=== PATIENT | male | born 1995 | race Caucasian/White ===

== ENCOUNTER 2018-01-11 13:47 | Emergency (ER) | payer BC ==
[~2018-01-11] VITALS: Ht 180.3 cm; Wt 87.5 kg
--- NOTE | 2018-01-11 13:56 | PD ---
HPI Chief Complaint: dizziness, palpitations Time Seen by Provider: 13:52 Travel History International Travel<30 days: No Contact w/Intl Traveler<30days: No History of Present Illness HPI 22-year-old male complains of lightheadedness and dizziness. He also complains of palpitations and heart racing sensation. He reports near syncope/loss of consciousness. He states, "I was Cipro nervous.". Onset occurred while the patient was sitting in class. Evidently he attempted to crack his neck when the dizziness started. He denies tobacco. No drug abuse. No excessive energy drinks or use of stimulants. Patient reports drinking alcohol on occasion none recently. No similar prior events have occurred. [facility] Social History Tobacco Use: No Allergies-Medications (Allergen,Severity, Reaction): Coded Allergies: No Known Allergies (Unverified , 01/11/18) Reported Meds & Prescriptions Reported Meds & Active Scripts Active No Active Prescriptions or Reported Medications Review of Systems Except as stated in HPI: all other systems reviewed are Neg General / Constitutional: No: Fever Physical Exam Narrative GENERAL: 22-year-old male pleasant well-nourished well-developed no acute distress SKIN: Warm and dry. HEAD: Atraumatic. Normocephalic. EYES: Pupils equal and round. No scleral icterus. No injection or drainage. ENT: No nasal bleeding or discharge. Mucous membranes pink and moist. NECK: Trachea midline. No JVD. CARDIOVASCULAR: Regular rate and rhythm. RESPIRATORY: No accessory muscle use. Clear to auscultation. Breath sounds equal bilaterally. GASTROINTESTINAL: Abdomen soft, non-tender, nondistended. Hepatic and splenic margins not palpable. MUSCULOSKELETAL: Extremities without clubbing, cyanosis, or edema. No obvious deformities. NEUROLOGICAL: Awake and alert. No obvious cranial nerve deficits. Motor grossly within normal limits. Five out of 5 muscle strength in the arms and legs. Normal speech. PSYCHIATRIC: Appropriate mood and affect; insight and judgment normal. Data Data Last Documented VS Vital Signs Date Time Temp Pulse Resp B/P (MAP) Pulse Ox O2 Delivery O2 Flow Rate FiO2 01/11/18 14:10 16 98 Room Air 01/11/18 14:01 98.7 53 125/55 (78) Orders Orders Electrocardiogram (01/11/18 13:52) Basic Metabolic Panel (Bmp) (01/11/18 13:52) Complete Blood Count With Diff (01/11/18 13:52) Magnesium (Mg) (01/11/18 13:52) Chest, Single Ap (01/11/18 13:52) Ecg Monitoring (01/11/18 13:52) Iv Access Insert/Monitor (01/11/18 13:52) Oximetry (01/11/18 13:52) Oxygen Administration (01/11/18 13:52) Sodium Chloride 0.9% Flush (Ns Flush) (01/11/18 14:00) Sodium Chlor 0.9% 1000 Ml Inj (Ns 1000 M (01/11/18 14:00) Ed Discharge Order (01/11/18 15:05) Labs Laboratory Tests Test 01/11/18 14:20 White Blood Count 6.9 TH/MM3 Red Blood Count 5.32 MIL/MM3 Hemoglobin 15.3 GM/DL Hematocrit 44.8 % Mean Corpuscular Volume 84.3 FL Mean Corpuscular Hemoglobin 28.8 PG Mean Corpuscular Hemoglobin Concent 34.1 % Red Cell Distribution Width 12.8 % Platelet Count 246 TH/MM3 Mean Platelet Volume 8.1 FL Neutrophils (%) (Auto) 75.4 % Lymphocytes (%) (Auto) 15.3 % Monocytes (%) (Auto) 7.0 % Eosinophils (%) (Auto) 1.3 % Basophils (%) (Auto) 1.0 % Neutrophils # (Auto) 5.1 TH/MM3 Lymphocytes # (Auto) 1.1 TH/MM3 Monocytes # (Auto) 0.5 TH/MM3 Eosinophils # (Auto) 0.1 TH/MM3 Basophils # (Auto) 0.1 TH/MM3 CBC Comment DIFF FINAL Differential Comment Blood Urea Nitrogen 23 MG/DL Creatinine 0.84 MG/DL Random Glucose 89 MG/DL Calcium Level 9.5 MG/DL Magnesium Level 2.0 MG/DL Sodium Level 142 MEQ/L Potassium Level 3.3 MEQ/L Chloride Level 108 MEQ/L Carbon Dioxide Level 26.0 MEQ/L Anion Gap 8 MEQ/L Estimat Glomerular Filtration Rate 112 ML/MIN MDM Medical Decision Making Medical Screen Exam Complete: Yes Emergency Medical Condition: Yes Medical Record Reviewed: Yes Differential Diagnosis SVT, anxiety, metabolic disorder, arrhythmia, anxiety, anemia Narrative Course CBC & BMP Diagram 01/11/18 14:20 Calcium Level 9.5, Magnesium Level 2.0 KG shows no preexcitation or ischemic injury pattern Patient reports feeling much better. Again the neurologic exam is normal and arterial dissection is considered unlikely. Diagnosis Primary Impression: Syncope, near Additional Impression: Palpitations Referrals: Primary Care Physician call for appointment Med/Other Pt SpecificInfo: No Change to Meds Scripts No Active Prescriptions or Reported Meds Disposition: 01 DISCHARGE HOME Condition: Stable Cam Corrales MD January 11, 2018 13:56
[2018-01-11] MEDS ORDERED: SODIUM CHLOR 0.9% 1000 ML INJ 1,000 ML IV ONE (14:00)
[2018-01-11] MEDS ORDERED: SODIUM CHLORIDE 0.9% FLUSH 10 ML FLUSH IVF PRN (14:00)
[2018-01-11 14:01] VITALS: BP 125/55; PULSE 53; RESP 16; TEMP 98.7; O2SAT 99
[2018-01-11 14:10] VITALS: RESP 16; O2SAT 98
--- NOTE | 2018-01-11 14:13 | RADRPT ---
EXAM DATE/TIME: 01/11/2018 13:59 [place] COMPARISON: No previous studies available for comparison. INDICATIONS : Chest pain this morning. MEDICAL HISTORY : None. SURGICAL HISTORY : None. ENCOUNTER: Initial ACUITY: 1 day PAIN SCORE: 3/10 LOCATION: Bilateral chest FINDINGS: A single view of the chest demonstrates the lungs to be symmetrically aerated without evidence of mas s, infiltrate or effusion. The cardiomediastinal contours are unremarkable. Osseous structures are intact. CONCLUSION: 1. No acute cardiopulmonary findings. Cam Arana MD on January 11, 2018 at 14:10 Board Certified Radiologist. This report was verified electronically.
[2018-01-11 14:28] LABS: AUTOMATED NEUTROPHIL # 5.1 TH/MM3 (1.8-7.7); BASOPHIL # 0.1 TH/MM3 (0-0.2); EOSINOPHIL # 0.1 TH/MM3 (0-0.4); EOSINOPHIL % 1.3 % (0.0-4.0); HEMATOCRIT 44.8 % (39.0-51.0); HEMOGLOBIN 15.3 GM/DL (13.0-17.0); LYMPH % 15.3 % (9.0-44.0); LYMPHOCYTE # 1.1 TH/MM3 (1.0-4.8); MEAN CELL VOLUME 84.3 FL (80.0-100.0); MEAN CORPUSCULAR HEMOGLOBIN 28.8 PG (27.0-34.0); MEAN CORPUSCULAR HGB CONC 34.1 % (32.0-36.0); MEAN PLATELET VOLUME 8.1 FL (7.0-11.0); MONOCYTE # 0.5 TH/MM3 (0-0.9); NEUT % 75.4 % (16.0-70.0); PLATELET COUNT 246 TH/MM3 (150-450); RED BLOOD COUNT 5.32 MIL/MM3 (4.50-5.90); RED CELL DISTRIBUTION WIDTH 12.8 % (11.6-17.2); WHITE BLOOD COUNT 6.9 TH/MM3 (4.0-11.0)
[2018-01-11 14:50] LABS: CALCIUM 9.5 MG/DL (8.5-10.1)
[2018-01-11 14:54] LABS: CREATININE 0.84 MG/DL (0.60-1.30)
[2018-01-11 15:21] VITALS: BP 128/64
--- NOTE | 2018-01-12 14:02 | EKG ---
Date Performed: 01/11/2018 Time Performed: 13:59:57 PTAGE: 22 years EKG: Sinus rhythm WITH SINUS ARRHYTHMIA ST ELEVATION, PROBABLY EARLY REPOLARIZATION BORDERLINE ECG NO PREVIOUS TRACING DOCTOR: Krista Castro Interpretating Date/Time 01/12/2018 13:58:41
== END 2018-01-11 16:01 | disposition home or self-care (01) ==
LOC: PHED 13:47
DX: R55 Syncope and collapse (principal); R00.2 Palpitations; R94.31 Abnormal electrocardiogram [ECG] [EKG]
CPT/HCPCS: 71045; 80048; 83735; 85025; 93005; 96360; 99285; J7030